=== PATIENT | female | born 1955 | race Caucasian/White ===

== ENCOUNTER 2023-11-19 15:22 | Emergency (ER) | payer MEDICARE, OTHER, SELFPAY ==
[2023-11-19 15:27] VITALS: BMI 29.7
[2023-11-19 15:39] LABS: Glucose - Point of Care 180 mg/dl (70-99)
[2023-11-19 15:47] LABS: % Basophils 0.3 % (0-2); % Eosinophils 1.4 % (0-6); % Immature Granulocytes 0.2 % (0-0.5); % Lymphocytes 37.1 % (20.5-51.1); % Monocytes 5.7 % (1.7-9.3); % Neutrophils 55.3 % (42.2-75.2); Absolute Eosinophils 0.1 10^3/uL (0-0.7); Absolute Lymphocytes 2.5 10^3/uL (1.2-3.4); Absolute Monocytes 0.4 10^3/uL (0.1-0.6); Absolute Neutrophils 3.7 10^3/uL (1.4-6.5); Hematocrit 38.6 % (37.0-47.0); Hemoglobin 14.3 g/dL (12.0-16.0); Mean Corpuscular Hgb 33.4 pg (27.0-31.0); Mean Corpuscular Volume 90.2 fL (81.0-99.0); Mean Platelet Volume 9.6 fL (7.4-10.4); Nucleated Red Blood Cells % 0 %; Platelet Count 201 10^3/uL (130-400); Red Blood Cell Count 4.28 10^6/uL (4.20-5.40); Red Cell Dist. Width 12.3 % (11.5-14.5); White Blood Cell Count 6.7 10^3/uL (4.8-10.8)
[2023-11-19 16:00] VITALS: BP 121/69
--- NOTE | 2023-11-19 16:01 | EDRN ---
Dr Ayala in room w/ pt at this time.
--- NOTE | 2023-11-19 16:11 | ED.GENMED ---
History of Present Illness
General
Chief Complaint: Dizziness
Source: patient
Exam Limitations: none
Time Seen by Provider: 11/19/23 15:58
History of Present Illness
History of Present Illness:
See MDM
Past History
Past History
ED Past Medical History: None
ED Past Surgical History: None
Social History
Tobacco: Non-smoker
Alcohol: None
Phy Exam
Physical Exam
Physical Exam:
See MDM
Course
Orders/Labs/Results
Orders:
Orders
11/19/23 15:24
EKG [Electrocardiogram (*1)] Urgent
Reason for Study: Vertigo / Dizzy
EKG- Treatment ONCE
11/19/23 15:39
Basic Metabolic Panel Urgent
Complete Blood Count/With Diff Urgent
11/19/23 16:10
0.9% Sodium Chloride 1000 ml [Nss] 1,000 ml IV BOLUS
11/19/23 16:11
Comprehensive Metabolic Panel Urgent
Abnormal Lab Results
11/19/23 11/19/23 11/19/23
15:37 15:39 16:11
MCH 33.4 H pg
(27.0-31.0)
Carbon Dioxide 20 L mmol/L
(22-30)
BUN 19 H mg/dl 19 H mg/dl
(7-17) (7-17)
Glucose 177 H mg/dl 177 H mg/dl
(70-99) (70-99)
POC Glucose 180 H mg/dl
(70-99)
11/19/23 15:39
11/19/23 16:11
Vital Signs
Initial and Last Documented VS:
Initial Vital Signs
Temp Pulse Resp Pulse Ox
98.4 F 101 16 98
11/19/23 15:27 11/19/23 15:27 11/19/23 15:27 11/19/23 15:27
Last Documented Vital Signs
Temp Pulse Resp BP Pulse Ox
98.4 F 85 15 129/71 100
11/19/23 15:27 11/19/23 17:30 11/19/23 17:30 11/19/23 17:00 11/19/23 17:30
MDM/Problems Addressed
Differential Diagnosis Includes:
HPI and MDM Narrative:
68-year-old female presenting for evaluation of syncope. Patient was at a a wedding shower. She acknowledges that she was late to the shower and did not drink any water and felt dehydrated. She took a sip of wine and stood up to go to the
bathroom. She felt weak and dizzy described as lightheaded. When she came back to the seat, she still felt lightheaded and she passed out when she sat down. This has happened in the past per patient and it was related to dehydration. She denies
any chest pain shortness of breath or palpitations. She denies headaches.
Patient remains in sinus rhythm on the monitor. She is feeling better sitting down. She is symptomatic when I stand her up quickly. No [id number] issues. Negative [place]-Hallpike. Will obtain basic blood work, give IV fluids and reassess
Physical exam
General: Well appearing and non-toxic
HEENT: protecting airway. Dry mucous membranes
Neck: appears supple
CV: No evidence of cyanosis. Regular rate and rhythm
Resp: No accessory muscle use. Lungs clear
Abd: Non-distended
Extremities: No deformities. No leg edema
Neuro: alert. Normal finger-nose. Negative [place]-Hallpike
Psych: Normal affect
Skin: Intact
Problems Addressed including Acute and Chronic Conditions affecting care:
1. Syncope
Acuity: acute
Prognosis: stable
Details: Likely related to orthostasis. Will give IV fluids and continue to reassess
Updates
Patient found to be hyperglycemic. Patient states she ate cake just prior to the syncopal event. We discussed having this rechecked by her PCP.
On reassessment is fluids are going in, patient feeling much better. She is actively drinking water. She is now sitting upright without symptoms and feels comfortable going home
Differential Diagnosis (but not limited to): Syncope, vertigo, cardiac arrhythmia
Testing considered: Troponin which denies chest pain or shortness of breath
Drug therapy (if applicable): OTC meds, please see d/c instruction regarding Rx drugs
Amount and/or Complexity of Data Reviewed
Clinical info obtained from: Patient
External data reviewed: N/A
Labs I independently reviewed (but not limited to): Hyperglycemia
Radiology: N/A
Pulse Ox: not hypoxic
EKG independently reviewed: Sinus rhythm, normal axis, no STEMI
[employer] Officer: Sinus rhythm
Critical Care: N/A
Risk of Complication:
Social Determinants of health: Good social support
Discussed with other providers: N/A
Escalation of Care includes Admit/Obs: After being observed in the Emergency Department, pt stable for discharge.
Occasional wrong word or 'sound a like' substitutions may have occurred due to the inherent limitations of voice recognition software. Read the chart carefully and recognize, using context, where substitutions have occurred.
*Critical Care Note
Total Time (30-74mins, 75-104mins- exclusive of procedures): Not Applicable
ED Attending Note
-
Portions of this chart may have been created with voice recognition software.� Occasional wrong word or��sound alike� substitutions may have occurred due to the inherent limitations of voice recognition software.
Discharge Plan
Departure
Patient Disposition: Home (Routine Discharge)
Date of Disposition: 11/19/23
Time of Disposition: 17:41
Patient with high blood pressure during this ER visit?: No
Discharge Problem:
Syncope, Acute hyperglycemia
Referrals:
NONE,* [Family Provider] -
Activity Restrictions/Additional Instructions:
Although your symptoms are likely related to dehydration, I cannot fully rule out an abnormal heart rhythm. Please talk to your doctor about your symptoms and whether or not to go forward with a Holter monitor. Please have your doctor reassess
your elevated blood sugar as well.
Please return for any worsening symptoms.
You may return at any time if you have further concerns.
Thank you for choosing [facility].
Interventions
Interventions:
*Risk Screen - Suicide Last Done: 11/19/23 15:27
*General Assessment Last Done: 11/19/23 15:27
*Neglect/Abuse Screening Last Done: 11/19/23 15:27
ED- Fall Risk Assessment Last Done: 11/19/23 15:27
*ED COVID-19 Vaccine History Last Done: 11/19/23 15:27
ED- Neurological Assessment Last Done: 11/19/23 16:20
ED- Cardiac Assessment Last Done: 11/19/23 16:20
ED Swallowing Screen Last Done: 11/19/23 16:20
Discharge Date and Time
Print Language: OCCITAN
[2023-11-19 16:12] LABS: Blood Urea Nitrogen 19 mg/dl (7-17); Calcium 9.4 mg/dl (8.4-10.2); Carbon Dioxide 20 mmol/L (22-30); Chloride 103 mmol/L (98-107); Estimated Creatinine Clearance 88 ml/min; Glucose 177 mg/dl (70-99); Sodium 136 mmol/L (135-145); eGFR > 60.00
[2023-11-19] MEDS: NSS 1000 IV (16:27)
[2023-11-19 16:29] LABS: ALT (SGPT) 24 U/L (0-35); AST (SGOT) 26 U/L (14-36); Albumin 4.7 g/dl (3.5-5.0); Alkaline Phosphatase 115 U/L (38-126); Blood Urea Nitrogen 19 mg/dl (7-17); Calcium 9.8 mg/dl (8.4-10.2); Carbon Dioxide 22 mmol/L (22-30); Chloride 103 mmol/L (98-107); Estimated Creatinine Clearance 76 ml/min; Glucose 177 mg/dl (70-99); Potassium 3.6 mmol/L (3.5-5.1); Sodium 138 mmol/L (135-145); Total Bilirubin 0.5 mg/dl (0.2-1.3); eGFR > 60.00
--- NOTE | 2023-11-19 16:37 | EDRN ---
Dr. Ayala said okay for pt to drink and pt given cup of water to drink at this time.
[2023-11-19 17:00] VITALS: BP 129/71
== END 2023-11-19 17:55 | disposition home or self-care (01) ==
LOC: EMR 15:22
PROVIDERS: EMERGENCY PHYSICIAN Student in an Organized Health Care Education/Training Program
DX: R55 Syncope and collapse (principal); R73.9 Hyperglycemia, unspecified
CPT/HCPCS: 99284; 96360; 80048; 80053; 82962; 85025; 93005